=== PATIENT | female | born 1965 | race Caucasian/White ===

== ENCOUNTER 2017-12-31 11:45 | Emergency (ER) | payer MEDICAID ==
[2017-12-31 12:18] VITALS: BP 162/102
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
== END 2017-12-31 13:24 | disposition home or self-care (01) ==
LOC: ED 11:45
DX: M23.8X1 Other internal derangements of right knee (principal); I10 Essential (primary) hypertension; Z87.828 Personal history of other (healed) physical injury and trauma; F17.200 Nicotine dependence, unspecified, uncomplicated
CPT/HCPCS: 99283